=== PATIENT | female | born 1945 | race Caucasian/White ===

== ENCOUNTER → 2016-07-06 | Outpatient (CLI) | payer BC ==
--- NOTE | 2016-07-06 08:34 | DIAGNOSTIC IMAGING REPORT ---
DOUBLE CONTRAST UPPER GI SERIES CLINICAL HISTORY: Dysphagia. Generalized abdominal pain. Weight loss. COMPARISON STUDY: Abdominal CT dated 01/11/2014. TECHNIQUE: A standard air contrast upper GI series was performed. Spot images of the esophagus and stomach were obtained in multiple obliquities both upright and prone. FINDINGS: The patient swallowed barium without difficulty. The esophagus is structurally normal without evidence of intrinsic or extrinsic mass. The esophageal mucosal pattern is normal. No gastroesophageal reflux was elicited by having the patient perform the Valsalva maneuver. There is minimal dysmotility the distal esophagus. The gastroesophageal junction distends normally. The stomach is normal in configuration and demonstrates normal distensibility. No mass or ulceration is identified. There was no evidence of gastritis. The duodenal bulb and sweep are unremarkable. Fluoroscopy time: 1.5 minutes Fluoroscopic images: 30 IMPRESSION: Mild esophageal dysmotility. Otherwise normal fluoroscopic upper GI series. Electronically signed by: Marvel Ragland M.D. 07/06/2016 8:32 AM Dictated Date/Time: 07/06/2016 8:30 AM
== END | disposition home or self-care (01) ==
LOC: C.RAD 07:58
PROVIDERS: ATTEND Internal Medicine
DX: J84.10 Pulmonary fibrosis, unspecified (principal)

== ENCOUNTER → 2016-07-18 | Outpatient (CLI) | payer BC ==
--- NOTE | 2016-07-18 14:40 | DIAGNOSTIC IMAGING REPORT ---
Nuclear gastric emptying study: CLINICAL HISTORY: Dysphagia. Pulmonary fibrosis. COMPARISON STUDY: Upper GI series July 06, 2016. TECHNIQUE: Following the oral administration of 1 mCi of technetium 99m sulfur colloid in egg sandwich and 8 ounces of water, static abdominal images were obtained anteriorly and posteriorly at 0 minutes, 1 hour, 2 hour, and 4 hour time intervals. Gastric emptying was calculated utilizing the geometric mean method. FINDINGS: There is approximately 73% gastric activity remaining at the 1 hour time interval (normal is less than 90%), 70% at the 2 hour time interval (normal is less than 60%), and 2% remaining at the 4 hour time interval (normal is less than 10%). IMPRESSION: Mildly delayed gastric emptying at the 2 hour time point. Normal emptying at the 1 and 4 hour time points. Electronically signed by: Maxi Joe M.D. 07/18/2016 2:38 PM Dictated Date/Time: 07/18/2016 2:29 PM
== END | disposition home or self-care (01) ==
LOC: C.NUCL 07:49
PROVIDERS: ATTEND Internal Medicine
DX: J84.10 Pulmonary fibrosis, unspecified (principal)

== ENCOUNTER → 2016-07-23 | Outpatient (CLI) | payer BC ==
[2016-07-23 14:53] LABS: BASO % 0.3 %; BASO ABS # 0.01 K/uL (0-0.2); COMPLETE YES; EOS % 4.7 %; HEMATOCRIT 36.6 % (37-47); LYMPH % 24.5 %; LYMPH ABS # 0.89 K/uL (1.2-3.4); MEAN CELL VOLUME 92.7 fL (80-100); MEAN CORPUSCULAR HEMOGLOBIN 29.9 pg (25-34); MEAN CORPUSCULAR HGB CONC 32.2 g/dl (32-36); MEAN PLATELET VOLUME 11.8 fL (7.4-10.4); MONO % 8.5 %; PLATELET COUNT 227 K/uL (130-400); RED BLOOD COUNT 3.95 M/uL (4.2-5.4); WHITE BLOOD COUNT 3.64 K/uL (4.8-10.8)
[2016-07-23 15:21] LABS: ALT/SGPT 23 U/L (12-78); BLOOD UREA NITROGEN 18 mg/dl (7-18); BUN/CREATININE RATIO 24.2 (10-20); CARBON DIOXIDE 29 mmol/L (21-32); CHLORIDE 103 mmol/L (98-107); CHOLESTEROL 209 mg/dl (0-200); CREATININE 0.74 mg/dl (0.60-1.20); GLUCOSE 86 mg/dl (70-99); SODIUM 139 mmol/L (136-145); TRIGLYCERIDES 85 mg/dl (0-150); VERY LOW DENSITY LIPOPROT CALC 17 mg/dl
[2016-07-23 15:32] LABS: ALB/GLOB RATIO 1.3 (0.9-2); ALKALINE PHOSPHATASE 57 U/L (45-117); AST/SGOT 26 U/L (15-37); CALCIUM 9.1 mg/dl (8.5-10.1); CHOLESTEROL/HDL RATIO 2.9; HDL CHOLESTEROL 71 mg/dl; LDL CHOLESTEROL CALCULATED 121 mg/dl
--- NOTE | 2016-08-08 09:24 | CODING QUERY MEDICAL NECESSITY ---
CQSUPPORTING DIAGNOSIS NEEDED A supporting diagnosis is required for the test/procedure performed on this patient in order for us to be reimbursed by the patient's insurance. Please provide a supporting diagnosis for the following test/procedure listed below next to the test name along with your signature. *If there is no additional diagnosis for this patient that would support the following test/procedure please document that below next to the test/procedure. Test(s)/Procedure(s) that require a supporting diagnosis: DOS 07/23/16 BLOOD COUNT TEST VITAMIN D TEST Provider Signature: Date: Thank you Ayana Wade [facility] Information Management Once completed, please kindly fax back to [phone] For questions please call [phone]
== END | disposition home or self-care (01) ==
LOC: C.LABBC 09:50
PROVIDERS: ATTEND Internal Medicine
DX: Z13.220 Encounter for screening for lipoid disorders (principal)

== ENCOUNTER → 2017-07-05 | Outpatient (CLI) | payer OTHER ==
[2017-07-05 14:28] LABS: BASO % 0.2 %; BASO ABS # 0.01 K/uL (0-0.2); EOS % 2.8 %; EOS ABS # 0.14 K/uL (0-0.5); HEMATOCRIT 33.6 % (37-47); HEMOGLOBIN 11.1 g/dL (12.0-16.0); LYMPH % 23.5 %; LYMPH ABS # 1.17 K/uL (1.2-3.4); MEAN CELL VOLUME 89.1 fL (80-100); MEAN CORPUSCULAR HEMOGLOBIN 29.4 pg (25-34); MEAN PLATELET VOLUME 11.4 fL (7.4-10.4); MONO % 9.5 %; MONO ABS # 0.47 K/uL (0.11-0.59); NEUT ABS # 3.18 K/uL (1.4-6.5); PLATELET COUNT 252 K/uL (130-400); RED CELL DISTRIBUTION WIDTH CV 14.3 % (11.5-14.5); RED CELL DISTRIBUTION WIDTH SD 46.8 fL (36.4-46.3); WHITE BLOOD COUNT 4.97 K/uL (4.8-10.8)
[2017-07-05 15:15] LABS: ALBUMIN 3.9 gm/dl (3.4-5.0); ALT/SGPT 20 U/L (12-78); BLOOD UREA NITROGEN 23 mg/dl (7-18); CALCIUM 8.9 mg/dl (8.5-10.1); CARBON DIOXIDE 27 mmol/L (21-32); CHOLESTEROL 194 mg/dl (0-200); GLUCOSE 91 mg/dl (70-99); POTASSIUM 3.9 mmol/L (3.5-5.1); SODIUM 134 mmol/L (136-145)
[2017-07-05 15:24] LABS: ALKALINE PHOSPHATASE 57 U/L (45-117); AST/SGOT 20 U/L (15-37); LDL CHOLESTEROL CALCULATED 116 mg/dl; TOTAL PROTEIN 7.4 gm/dl (6.4-8.2)
[2017-07-09 11:34] LABS: ANA SCREEN TC 249X POSITIVE (NEGATIVE)
== END | disposition home or self-care (01) ==
LOC: C.LABBC 11:30
PROVIDERS: ATTEND Internal Medicine
DX: Z00.00 Encounter for general adult medical examination without abnormal findings (principal); K21.9 Gastro-esophageal reflux disease without esophagitis; I73.00 Raynaud's syndrome without gangrene; J84.10 Pulmonary fibrosis, unspecified; D72.819 Decreased white blood cell count, unspecified; I31.3 Pericardial effusion (noninflammatory); E55.9 Vitamin D deficiency, unspecified; R89.4 Abnormal immunological findings in specimens from other organs, systems and tissues; K58.1 Irritable bowel syndrome with constipation; R76.8 Other specified abnormal immunological findings in serum; G31.84 Mild cognitive impairment of uncertain or unknown etiology

== ENCOUNTER → 2017-07-29 | Outpatient (CLI) | payer OTHER ==
[2017-07-29 13:56] LABS: BLOOD UREA NITROGEN 21 mg/dl (7-18); CREATININE 0.75 mg/dl (0.60-1.20)
== END | disposition home or self-care (01) ==
LOC: C.LABBC 10:25
PROVIDERS: ATTEND Psychiatry & Neurology Neurology
DX: R51 Headache (principal); R41.3 Other amnesia

== ENCOUNTER → 2017-08-01 | Outpatient (CLI) | payer OTHER | END | disposition home or self-care (01) | LOC: C.MAMM 13:37 | PROVIDERS: ATTEND Internal Medicine | DX: M85.89 Other specified disorders of bone density and structure, multiple sites (principal) ==

== ENCOUNTER → 2017-08-02 | Outpatient (CLI) | payer OTHER ==
[~2017-08-02] MED LIST: GADAVIST IV PRN
--- NOTE | 2017-08-02 11:56 | DIAGNOSTIC IMAGING REPORT ---
ORBIT RADIOGRAPHS 3 VIEWS HISTORY: pre-MRI screening. COMPARISON: None. FINDINGS: There are no radiopaque foreign bodies identified within the orbits. IMPRESSION: No radiopaque foreign bodies identified within the orbits. Electronically signed by: Maxi Joe M.D. 08/02/2017 11:55 AM Dictated Date/Time: 08/02/2017 11:55 AM
--- NOTE | 2017-08-02 12:58 | DIAGNOSTIC IMAGING REPORT ---
BRAIN COMBO HISTORY: 72 years-old Female R51 [id number] Memory [id number] acute headache with memory loss COMPARISON: None available TECHNIQUE: Multiplanar multisequence MRI of the brain was obtained both with and without the use of 5.2 amount Gadavist FINDINGS: There is no restricted diffusion to suggest acute or subacute infarction. Low-lying cerebellar tonsils extend 6 mm inferior to the foramen magnum. No syrinx of the imaged cervical spinal cord. Corpus callosum, optic chiasm, pituitary and pineal gland appear unremarkable on the sagittal T1 series. Degenerative changes of the imaged cervical spine are noted. There is no acute intracranial hemorrhage, midline shift, abnormal extra-axial collections or hydrocephalus. There is mild brain atrophy. Mild degree of patchy T2/FLAIR prolongation is seen within the subcortical and periventricular white matter of the cerebral hemispheres bilaterally suggesting chronic microvascular ischemic changes. Additionally, there are ill-defined T2/flair hyperintensities seen involving the central demond as noted on images 16 and 17 of series 5. There is no abnormal intra-axial or extra-axial enhancement identified. The major flow voids at the level of the skull base appear patent. Orbits are symmetric and within normal limits. Mastoid air cells are generally clear. Mild mucosal thickening of the ethmoid air cells. Scalp, skull and soft tissues are within normal limits. IMPRESSION: 1. No acute intracranial abnormality identified. 2. No abnormal enhancement. 3. Probable mild chronic microvascular ischemic changes with mild atrophy. 4. Chiari I malformation. 5. Mild ethmoid sinus disease. The above report was generated using voice recognition software. It may contain grammatical, syntax or spelling errors. Electronically signed by: Fabrice Modi M.D. 08/02/2017 12:57 PM Dictated Date/Time: 08/02/2017 12:49 PM
== END | disposition home or self-care (01) ==
LOC: C.MRIBC 11:22
PROVIDERS: ATTEND Psychiatry & Neurology Neurology
DX: R41.3 Other amnesia (principal); R51 Headache